=== PATIENT | male | born 1965 | race Caucasian/White ===

== ENCOUNTER 2024-09-09 20:24 | Emergency (ER) | payer BC, SELFPAY ==
--- NOTE | ~2024-09-09 | XR_ITS ---
EXAMINATION: XR chest 1V portable DATE: 09/09/2024 20:21 INDICATION: Chest pain. TECHNIQUE: A single frontal view of the chest was obtained. COMPARISON: None. FINDINGS: There is mild atelectasis at left lung base. No pleural effusion or pneumothorax. The heart size is normal. There is a moderate-sized hiatal hernia. IMPRESSION: 1. Mild atelectasis at left lung base. 2. Moderate-sized hiatal hernia. Reviewed, dictated and finalized at location A. 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
[2024-09-09 19:49] VITALS: BP 127/80; PULSE 78; RESP 22; TEMP 36.8; O2SAT 95
[2024-09-09 20:00] VITALS: BP 119/79; PULSE 72; PULSE 75; RESP 14; O2SAT 95
--- NOTE | 2024-09-09 20:04 | ECG_ITS ---
Test Date: 2024-09-09 19:57:39 Measurements Intervals [place] Rate: 74 P: 38 WV: 184 QRS: -15 QRSD: 84 T: 17 QT: 372 QTc: 413 Interpretive Statements SINUS RHYTHM LOW QRS VOLTAGE IN PRECORDIAL LEADS [QRS DEFLECTION < 1.0 mV IN CHEST LEADS] Possible Old inferior PR No previous ECG available for comparison Electronically Signed On 09-10-2024 08:54:44 [employer] by Kunal Lujan M.D.
[2024-09-09 20:11] LABS: Glucose Point of Care 165 mg/dl (65-105)
--- NOTE | 2024-09-09 20:12 | PC.NURSE ---
per vorb by edp dr. clements pt to receive 1L normal saline bolus at a rate of 999mls/ hour. this rn used closed loop communication to confirm patient/ time/ route/ dosage/ medication. edp dr. tsai confirmed 1L normal saline bolus to continue from EMS.
[2024-09-09 20:13] LABS: Basophils Absolute Auto 0.1 K/mm3 (0.0-0.1); Basophils Percent Auto 0.7 % (0.2-1.2); Eosinophils Absolute Auto 0.4 K/mm3 (0-0.3); Eosinophils Percent Auto 3.9 % (0-4.4); Hematocrit 43.6 % (42.0-52.0); Hemoglobin 14.8 g/dL (14.0-18.0); Immature Granulocyte Absolute 0.04 K/mm3 (0.00-0.031); Immature Granulocyte Percent A 0.4 % (0-0.5); Lymphocytes Absolute Auto 3.29 K/mm3 (0.9-3.2); Lymphocytes Percent Auto 31.8 % (18.3-44.2); Mean Corpuscular HGB Conc 33.9 g/dl (32-36); Mean Corpuscular Hemoglobin 30.6 pg (26-34); Mean Corpuscular Volume 90.3 fl (80-100); Mean Platelet Volume 9.8 fl (7.4-10.4); Monocytes Absolute Auto 1.2 K/mm3 (0.1-0.6); Monocytes Percent Auto 11.6 % (2.6-8.5); Neutrophils Absolute Auto 5.3 K/mm3 (1.3-6.7); Neutrophils Percent Auto 51.6 % (45.5-73.1); Platelet Count Result 291 k/mm3 (150-375); Red Blood Count 4.83 M/mm3 (4.6-6.20); Red Cell Distribution Width 12.3 % (11.5-14.5); White Blood Count 10.3 K/mm3 (4.5-10.0)
[2024-09-09 20:23] LABS: Alanine Aminotransferase 24 U/L (6-50); Albumin Level 4.1 g/dL (3.5-5.1); Alkaline Phosphatase 78 U/L (38-126); Anion Gap 4 mmol/L (4-12); Aspartate Amino Transferase 28 U/L (17-59); Bilirubin,Total 0.5 mg/dL (0.2-1.3); Blood Urea Nitrogen 18 mg/dL (9-20); Calcium 8.9 mg/dL (8.4-10.2); Carbon Dioxide 25 mmol/L (22-30); Chloride 108 mmol/L (98-107); Estimated CRCL calculation 78 ml/min; Estimated Glomerular Filt Rate > 60; Glucose 164 mg/dL (65-110); Sodium 137 mmol/L (137-145)
--- NOTE | 2024-09-09 20:25 | ED.SYNCOPE ---
HPI - Syncope General Chief Complaint: Syncope Stated Complaint: STEMI History of Present Illness HPI narrative: 59-year-old male with no pertinent past medical history presenting to the emergency department as a STEMI code activation. Patient was at a basketball game watching and he had a near syncopal event. He felt very diaphoretic, chest pain that reaches 10/10, short of breath. Became diaphoretic when EMS arrived. They noted that he had an EKG that initially read as a STEMI which was transmitted to our hospital. They applied nitro paste administered 324 mg of p.o. aspirin and fentanyl EN route IV. Related Data Allergies Allergy/AdvReac Type Severity Reaction Status Date / Time No Known Allergies Allergy Verified 09/09/24 20:00 Review of Systems Review of Systems: As reviewed above in HPI Exam Narrative: GENERAL: Pale diaphoretic appearing, awake alert and answering questions HEAD: [Normocephalic, atraumatic.] EYES: [PERRLA and EOMI.] ENT: Nares clear, no rhinorrhea or epistaxis. Mucous membranes moist. NECK: Supple. CHEST: [Clear to auscultation. No respiratory distress.] HEART: [Regular rate and rhythm]. No murmur heard. [Normal peripheral pulses.] 2+ peripheral pulses throughout both arms and legs, warm extremities ABDOMEN: [Soft, nondistended], [nontender], [No rigidity or guarding] EXTREMITIES: Normal range of motion. [No edema.] SKIN: Warm, dry, no rash. NEURO: [No focal deficits]. Alert and oriented [x3.] PSYCH: [Normal mood and affect.] Course Vital Signs Vital signs: Vital Signs Temperature 36.8 C 09/09/24 19:49 Pulse Rate 78 09/09/24 19:49 Respiratory Rate 22 H 09/09/24 19:49 Blood Pressure 127/80 09/09/24 19:49 Pulse Oximetry 95 09/09/24 19:49 Oxygen Delivery Room Air 09/09/24 19:49 Temperature 36.8 C 09/09/24 19:49 Pulse Rate 74 09/09/24 20:51 Respiratory Rate 16 09/09/24 20:51 Blood Pressure 116/84 09/09/24 20:51 Pulse Oximetry 94 09/09/24 20:51 Oxygen Delivery Room Air 09/09/24 20:00 MDM - Syncope MDM Narrative Medical decision making narrative: Patient presenting for STEMI code and chest pain from EMS transfer. Initial EKG shows some ST elevations in the inferior leads with no reciprocal depressions however moments later patient had a new EKG transmitted to us with full inferior STEMI, reciprocal depressions in 1 aVL, V2 V3. Patient arrives via EMS and I immediately called and spoke to the food cart attendant Dr. Stanley upon receiving patient's transmitted EKGs and while he was being situated into the room. Code STEMI activated His vital signs are reassuring without any significant blood pressure concerns, tachycardia, hypoxia or fever. I went over the patient's EKG and clinical presentation with a inferior wall STEMI with the food cart attendant over the phone. Presently we do not have laboratory animal care veterinarian activation abilities given that the telegraphic typewriter installer's currently being scribed into a laboratory animal care veterinarian procedure with a balloon pump patient at [facility]. I asked for recommendations regarding interventions or transfer. Recommendations are to transfer him to another facility that has a laboratory animal care veterinarian available within close distance. I asked patient to the family members or no at bedside if they have any preferences and they have no issues if he goes any over the laboratory animal care veterinarian at this time. He remains medically stable. I initiated a heparin bolus of 4000 units and given 180 of mg of Brilinta to complete his dual antiplatelet therapy and heparinization preparing for transfer. Spoke to the [facility] transfer system informed them of patient's need for critical transfer and time critical diagnosis of STEMI. Was connected to Interventional Cardiology at [facility] Dr. Gil. We discussed patient's clinical presentation, EKG, plan of care going forward and he was instructed to proceed to the emergency department at [facility] for evaluation and laboratory animal care veterinarian activation. I was able to speak to the emergency department physician Dr. Crews who has accepted the patient to the ED as a time critical transfer for STEMI. Patient's pain is now 1/10 in intensity and he is hemodynamically stable and appropriate for transfer. [facility] was put on standby previously while we are making phone calls for destination in location. Laboratories have been sent off and he does have an elevated troponin and EKG evidence of an acute myocardial infarction. Ambulance services have arrived and patient is transferred to [facility] without further incident. Medical Records Attestation: I reviewed the patient's medical records. Lab Data Attestation: I reviewed the patient's lab results. 09/09/24:08 09/09/24 20:08 Labs: Lab Results 09/09/24 09/09/24 09/09/24 Range/Units 20:04 20:07 20:08 WBC 10.3 H (4.5-10.0) K/mm3 RBC 4.83 (4.6-6.20) M/mm3 Hgb 14.8 (14.0-18.0) g/dL Hct 43.6 (42.0-52.0) % MCV 90.3 (80-100) fl MCH 30.6 (26-34) pg MCHC 33.9 (32-36) g/dl RDW 12.3 (11.5-14.5) % Plt Count 291 (150-375) k/mm3 MPV 9.8 (7.4-10.4) fl Immature Gran % (Auto) 0.4 (0-0.5) % Neut % (Auto) 51.6 (45.5-73.1) % Lymph % (Auto) 31.8 (18.3-44.2) % [place] % (Auto) 11.6 H (2.6-8.5) % Eos % (Auto) 3.9 (0-4.4) % Baso % (Auto) 0.7 (0.2-1.2) % Lymph # (Auto) 3.29 H (0.9-3.2) K/mm3 [place] # (Auto) 1.2 H (0.1-0.6) K/mm3 Eos # (Auto) 0.4 H (0-0.3) K/mm3 Baso # (Auto) 0.1 (0.0-0.1) K/mm3 Abs Immat Gran (auto) 0.04 H (0.00-0.031) K/mm3 Absolute Neuts (auto) 5.3 (1.3-6.7) K/mm3 Absolute Nucleated RBC 0.000 (0.0-0.012) K/mm3 Nucleated RBC % 0.0 (0.0-0.2) % Sodium 137 (137-145) mmol/L Potassium 4.0 (3.4-5.0) mmol/L Chloride 108 H (98-107) mmol/L Carbon Dioxide 25 (22-30) mmol/L Anion Gap 4 (4-12) mmol/L BUN 18 (9-20) mg/dL Creatinine 1.10 (0.7-1.3) mg/dL Estim Creat Clear Calc 78 ml/min Estimated GFR > 60 (59 - ) Glucose 164 H (65-110) mg/dL POC Capillary Glucose 165 H (65-105) mg/dl Calcium 8.9 (8.4-10.2) mg/dL Total Bilirubin 0.5 (0.2-1.3) mg/dL AST 28 (17-59) U/L ALT 24 (6-50) U/L Alkaline Phosphatase 78 (38-126) U/L Troponin I 0.148 H* (0.000-0.034) ng/mL Total Protein 7.0 (6.3-8.2) g/dL Albumin 4.1 (3.5-5.1) g/dL Imaging Data Attestation: I personally reviewed and interpreted this imaging study as follows: My impression: Impressions Chest X-Ray 09/09/24 20:36 IMPRESSION: 1. Mild atelectasis at left lung base. 2. Moderate-sized hiatal hernia. ECG Data EKG #1: Attestation: I personally reviewed and interpreted this ECG as follows: ECG completion date: 09/09/24 ECG completion time: 19:57 Prior ECG tracings: not available for review Interpretation: ST segment elevation myocardial infarction in leads 2, 3, AVF. Flattened T-waves in leads V2, inversions in V1. Compared to previous EKG transmitted via EMS ST segments are decreased in intensity and elevation but still present. Final diagnosis STEMI. Critical Care Time Critical Care Time Critical Care Time: Yes Total Critical Care Time: 35 Discharge Plan Discharge Clinical Impression: ST elevation (STEMI) myocardial infarction Patient Disposition: Acute Care Hospital Condition: Serious Patient Language: Nicarag[place] Time of Disposition: 20:25
[2024-09-09] MEDS: TICAGRELOR 90 MG TABLET 180 MG PO (20:39)
[2024-09-09 20:40] LABS: Troponin I 0.148 ng/mL (0.000-0.034)
[2024-09-09] MEDS: HEPARIN SODIUM 5,000 UNITS/ML VIAL 4000 UNITS IV PUSH (20:40)
[2024-09-09 20:49] VITALS: BP 116/84; PULSE 75; RESP 16; O2SAT 94
[2024-09-09 20:51] VITALS: BP 116/84; PULSE 74; RESP 16; O2SAT 94
== END 2024-09-09 21:19 | disposition short-term general hospital (02) ==
LOC: ANHED 20:59
PROVIDERS: Emergency Provider Student in an Organized Health Care Education/Training Program
DX: I21.3 ST elevation (STEMI) myocardial infarction of unspecified site (principal); K44.9 Diaphragmatic hernia without obstruction or gangrene; R94.31 Abnormal electrocardiogram [ECG] [EKG]
CPT/HCPCS: 36415; 71045; 80053; 82948; 84484; 85025; 93005; 96374; 99291; A9270; J1644